=== PATIENT | female | born 1965 ===

== ENCOUNTER → 2018-10-15 | Emergency (ER) | payer OTHER ==
[~2018-10-15] VITALS: Ht 162.6 cm; Wt 47.2 kg
[~2018-10-15] MED LIST: PEPCID20 MG PO; SEPTRA DS TABLE1 TAB PO; TRAMADOL HCL50 MG PO
== END | disposition left against medical advice (07) ==
LOC: ER 14:25
DX: Z53.21 Procedure and treatment not carried out due to patient leaving prior to being seen by health care provider (principal)